=== PATIENT | female | born 1980 | race Caucasian/White ===

== ENCOUNTER 2018-08-09 18:47 | Emergency (ER) | payer OTHER ==
[~2018-08-09] VITALS: Ht 160 cm; Wt 61.2 kg
[~2018-08-09 18:47] MED LIST: AUGMENTIN 875875 MG PO; BACTRIM DS TAB1 EACH PO; LISINOPRIL10 MG PO; NAPROSYN500 MG PO; NOHOMEMEDICATIONS; NORCO 5-325 TA1 EACH PO; XANAX 0.25 MG0.25 MG PO
[2018-08-09 18:54] VITALS: BP 175/90
== END 2018-08-09 19:46 | disposition home or self-care (01) ==
LOC: ER 18:47
DX: J02.9 Acute pharyngitis, unspecified (principal); H92.03 Otalgia, bilateral; F17.210 Nicotine dependence, cigarettes, uncomplicated; Z98.890 Other specified postprocedural states